=== PATIENT | male | born 1980 | race Caucasian/White ===

== ENCOUNTER 2018-10-29 14:54 | Emergency (ER) | payer SELFPAY ==
[2018-10-29 14:56] VITALS: BP 151/89; PULSE 111; RESP 16; TEMP 36.7; O2SAT 99; BMI 25.0
--- NOTE | 2018-10-29 15:22 | ED.RN ---
pt reports to this rn that he does not want to follow workers comp, despite the injury occurring at work. dr. ac informed.
--- NOTE | 2018-10-29 15:29 | ED.VISSUMM ---
- ER Visit Summary Date of Service: 10/29/18 Chief Complaint: Left thumb laceration History of Present Illness: The patient is a 38 M who was cutting potatoes at work when he incised his left thumb with a knife. Last tetanus was approximately 2000 when he joined the [employer]. Physical Examination: Afebrile vital signs are stable There is a 2 cm flap laceration over the distal aspect of the left thumb. The tissue was still attached and the tissue is still pink. Neurovascular intact. No nail injury. Emergency Department Course and Treatment: Wound was locally anesthetized using 1% lidocaine. Wound was washed with Shur-Clens irrigated and explored. A total of #4 simple interrupted 4-0 Ethilon sutures were placed. Wound was dressed. Tetanus is updated. Patient was advised that the skin may not survive due to blood supply issues. But that it would regenerate. He will follow-up in right 7 to 10 days for suture removal. He states he sees Dr. Villanueva for primary care. Impression: 1. 2 cm left thumb laceration with repair 2. Tetanus update This note was generated with [employer] dictation software. It may contain incorrect words, spelling, and punctuation that were not noted in review of the chart prior to signing ED Disposition - Plan for ED Patient: Disposition: Home or Assisted Living Instructions: ED Laceration Hand Referrals: Jaya Villanueva MD [Primary Care Provider] - (in 7-10 days for suture removal)
--- NOTE | 2018-10-29 15:32 | ED.DCSUM_ITS ---
- ER Visit Summary Date of Service: 10/29/18 Chief Complaint: Left thumb laceration History of Present Illness: The patient is a 38 M who was cutting potatoes at work when he incised his left thumb with a knife. Last tetanus was approximately 2000 when he joined the [employer]. Physical Examination: Afebrile vital signs are stable There is a 2 cm flap laceration over the distal aspect of the left thumb. The tissue was still attached and the tissue is still pink. Neurovascular intact. No nail injury. Emergency Department Course and Treatment: Wound was locally anesthetized using 1% lidocaine. Wound was washed with Shur-Clens irrigated and explored. A total of #4 simple interrupted 4-0 Ethilon sutures were placed. Wound was dressed. Tetanus is updated. Patient was advised that the skin may not survive due to blood supply issues. But that it would regenerate. He will follow-up in right 7 to 10 days for suture removal. He states he sees Dr. Villanueva for primary care. Impression: 1. 2 cm left thumb laceration with repair 2. Tetanus update This note was generated with [employer] dictation software. It may contain incorrect words, spelling, and punctuation that were not noted in review of the chart prio r to signing ED Disposition - Plan for ED Patient: Disposition: Home or Assisted Living Instructions: ED Laceration Hand Referrals: Jaya Villanueva MD [Primary Care Provider] - (in 7-10 days for suture removal)
[2018-10-29] MEDS: Diphth,Pertuss(Acell),Tet Vac 0.5 ML Vial IM (15:35)
== END 2018-10-29 16:03 | disposition home or self-care (01) ==
PROVIDERS: Emergency Provider Emergency Medicine; Family Provider Family Medicine; PCP Family Medicine
DX: S61.012A Laceration without foreign body of left thumb without damage to nail, initial encounter (principal); W26.0XXA Contact with knife, initial encounter; Y93.89 Activity, other specified; Y92.89 Other specified places as the place of occurrence of the external cause; Y99.0 Civilian activity done for income or pay; Z23 Encounter for immunization
CPT/HCPCS: 12001; 90471; 90715; 99284

== ENCOUNTER → 2018-11-13 10:46 | Outpatient (CLI) | payer SELFPAY ==
[2018-10-29 14:56] VITALS: BMI 25.0
--- NOTE | 2018-11-13 10:50 | RAD_ITS ---
STUDY: X-RAY CHEST REASON FOR EXAM: Male, 38 years old. Cough TECHNIQUE: PA and lateral views of the chest. COMPARISON: None. FINDINGS: Subtle infiltrate in the right middle lobe. Otherwise, lungs are clear There is no demonstrated pleural abnormality. Normal size heart. Normal mediastinum and paz. Normal visualized pulmonary arteries. Normal visualized aortic arch and descending thoracic aorta. Normal visualized thoracic spine. Normal visualized ribs, clavicles, and shoulders. There is no demonstrated abnormality of the visualized soft tissue structures of the upper abdomen. RAD/Chest PA and Lateral IMPRESSION: Subtle right middle lobe pneumonia Electronically Signed: Jose Berrios DO at 8:38 EDT Tel , Service support ,
[2018-11-13 14:26] LABS: Absolute Lymphocyte Count 1.72 X10^3/ul (0.83-4.51); Absolute Neutrophil Count 7.2 X10^3/uL (2.0-7.7); Basophil# 0.01 X10^3/uL; Basophil% 0.1 % (0-1); Eosinophil# 0.47 X10^3/uL; Eosinophils% 4.6 % (0-5); Hematocrit 43.6 % (40-54); Hemoglobin 14.7 g/dl (13.0-16.5); Lymphocyte # 1.72 X10^3/ul (4.0); Lymphocyte % 16.8 % (19-41); Mean Corp Hgb Conc 33.7 g/gl (32-36); Mean Corpuscular Hgb 28.3 pg (27.0-32.0); Mean Corpuscular Volume 83.8 fL (80-94); Mean Platelet Vol. 11.2 fl (6.2-12.0); Monocyte# 0.85 X10^3/uL; Monocyte% 8.3 % (0-10); Neutrophil # 7.15 X10^3/uL (2.7-7.7); Neutrophil % 70.1 % (47-70); Platelet Count 291 K/mm3 (150-450); RBC Distribution Width CV 12.9 % (11.6-14.6); RBC Distribution Width SD 39.7 fl (35.1-43.9); White Blood Count 10.2 K/mm3 (4.4-11.0)
[2018-11-13 14:36] LABS: POSITIVE COUNT NO; POSITIVE DIFFERENTIAL NO; POSITIVE MORPHOLOGY NO
[2018-11-17 17:28] LABS: ANTINUCLEAR ANTIBODIES DIRECT Negative (Negative)
== END ==
PROVIDERS: Family Provider Family Medicine; PCP Family Medicine; Referring Provider Family Medicine; Visit Provider Family Medicine
DX: J18.9 Pneumonia, unspecified organism (principal)
CPT/HCPCS: 36415; 71046; 85025; 86038; 86140

== ENCOUNTER → 2019-07-15 14:40 | Outpatient (CLI) | payer BC, SELFPAY ==
--- NOTE | 2019-07-15 14:47 | RAD_ITS ---
HISTORY: right shoulder pain, some numbness lately in arm COMPARISON: None FINDINGS: # of images incl. paperwork: 5 XR Spine Cervical 4 or 5 Views: 5 views of the cervical spine were obtained. All 7 cervical vertebral bodies are identified. No acute cervical spine fracture or subluxation. Normal cervical spine alignment. Odontoid is intact. No significant degenerative change. RAD/Cerv Spine 4 or 5 Views IMPRESSION: No acute cervical spine fracture or subluxation. at 2354 Reported and signed by: Fox Moore MD Electronically Signed: Fox Moore MD at 23:53 EST Tel , Service support ,
== END ==
PROVIDERS: PCP Family Medicine; Referring Provider Family Medicine; Visit Provider Family Medicine
DX: M54.12 Radiculopathy, cervical region (principal)
CPT/HCPCS: 72050

== ENCOUNTER → 2019-07-30 16:53 | Outpatient (CLI) | payer BC, SELFPAY ==
--- NOTE | 2019-07-30 17:14 | MRI_ITS ---
STUDY: MRI CERVICAL SPINE WITHOUT CONTRAST REASON FOR EXAM: Male, 38 years old. right upper extremity weakness TECHNIQUE: Standardized fat and water weighted pulse sequences were obtained in the sagittal and axial planes. COMPARISON: None FINDINGS: Normal foramen magnum and brainstem-cervical cord junction. Normal craniovertebral junction. Normal anterior atlantoaxial articulation. Normal odontoid process. There is reversal of the normal cervical lordosis. Normal vertebral bodies and posterior osseous elements. C2-3: Minor disc desiccation, otherwise normal. C3-4: Diffuse disc desiccation otherwise normal C4-5: Normal endplates. Disc desiccation and mild posterior disc space narrowing is present without bulging or herniation. Normal central canal and intervertebral neural foramina. C5-6: Normal endplates. A moderate size right paracentral disc region measuring 8 mm in diameter is present resulting in compression on the right anterior aspect of the cord and of the exiting nerve root in the opening of the neural foramen. The disc spaces mildly narrowed. Normal central canal and intervertebral neural foramina. C6-7: Normal endplates. Minimal posterior disc space narrowing without bulging or herniation disc desiccation. Normal central canal and intervertebral neural foramina. C7-T1: Normal endplates. Normal disc height, signal and morphology. Normal central canal and intervertebral neural foramina. Normal cervical cord. Normal visualized soft tissue structures. MRI/Spine Cervical (Routine) IMPRESSION: 1. C5-C6 right paracentral extruded disc material resulting in compression on the right anterior aspect of the cord and compression of the exiting nerve root proximal to the neural foramen. 2. Additional mild multilevel degenerative changes as above. Electronically Signed: Jose Cheung MD at 13:20 EST , Service support ,
== END ==
PROVIDERS: PCP Family Medicine; Referring Provider Family Medicine; Visit Provider Family Medicine
DX: M54.12 Radiculopathy, cervical region (principal)
CPT/HCPCS: 72141

== ENCOUNTER 2019-09-07 10:30 | Outpatient (RCR) | payer BC, SELFPAY ==
--- NOTE | 2019-08-05 12:21 | HP.PTEVAL ---
Patient's Visit Information RANDAL PEDRO Jr. is a 38 year old M referred to Physical Therapy by Jaya Villanueva MD with a diagnosis of CERVICAL RADICULOPATHY. Date of Evaluation: 08/05/19 Physical Therapist: Lianna Sanchez PT, Cert MDT - Visit Plan Frequency: 2-3x /Week Duration: 4-6 Weeks Plan: POSTURE CORRECTION/STRENGTHENING, INSTRUCTION IN APPROPRIATE BODY MECHANICS AND ACTIVITY MODIFICATIONS. CONSIDER TRACTION. RIGHT UE ROM, STRETCHING AND STRENGTHENING. CERVICAL STABILIZATION, HEP INSTRUCTION INCLUDING THE FOLLOWING APPROPRIATE: REP RET IN SITTING. REP RET IN LYING. SCAP SQUEEZES. DEEP NECK FLEXOR LIFT. PRONE W'S. UE WALL SLIDES. PRONE ROWS. UE TBAND WALL WALKS. ANTERIOR/MIDDLE SCALENE STRETCH. UPPER TRAP STRETCH. LEVATOR SCAPULAE STRETCH. CHEST/PEC MAJOR AND MINOR STRETCH - Subjective Findings: Diagnosis: CERVICAL RADICULOPATHY. 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 AT [employer] ABOUT 60 HOURS A WEEK. Disability: NO. Present symptoms: PAIN, NUMBNESS AND TINGLING FROM SHOULDER TO THUMB - THROUGH WHOLE ARM. NECK PAIN HAS REDUCED SINCE BEING ON MALOXACAM AND GABAPENTIN. WEAKNESS. Present since: ABOUT 4 WEEKS AGO. Pain Scale: Worst - 8/10 Least - 2/10. Currently: 09/07. Commenced as a result of: NO APPARENT REASON. WOKE UP ONE MORNING RESTING HEAD ON PILLOW WITH RIGHT UE OUTSTRETCHED UNDER PILLOW. Symptoms at onset: STIFF NECK. Worse: HANGING ARM DOWN, NOT TAKING GABAPENTIN AND SLEEPING PILL, USING THE ARM IN GENERAL. NO STRENGTH IN RIGHT UE - CAN'T CARRY A GALLON OF MILK. RIGHT HAND DOMINANT. DRIVING IS THE WORST. Better: PUTTING RIGHT ARM UP OVER HEAD. Disturbed sleep: YES. Previous history/Previous treatment: UNREMARKABLE. This episode: 2 CHIROPRACTIC VISITS: FIRST TREATMENT HELPED RELIEVE SOME PAIN BUT AFTER SECOND VISIT STARTED GETTING MORE PAIN IN THE SHOULDER AND DOWN THE ARM. SLEEPING, GABAPENTIN, MALOXACAM, B6. PT REFERRAL. PAIN MGMT REFERRAL TO DR. GRAF. APPT WITH DR. DELGADILLO AUG 12 2019 - TO GET ADJUSTED AND ALIGNED. HAS ALSO BEEN REFERRED TO A NEUROLOGIST AND IS AWAITING ARJUN'T DATE. ALSO TRIED PREDNISONE THIS EPISODE OF CARE AND IT DIDN'T WORK. Dizziness: NO. Tinnitis: NO. Nausea: NO. Shortness of Breath: NO. Difficulty Swollowing: NO. Gait: NORMAL BUT HURTS NECK SOMETIMES. Accidents: NO. Unexplained weight loss: NO. Imaging: MRI - STUDY: MRI CERVICAL SPINE WITHOUT CONTRAST. REASON FOR EXAM: Male, 38 years old. right upper extremity weakness. TECHNIQUE: Standardized fat and water weighted pulse sequences were. obtained in the sagittal and axial planes. COMPARISON: None. . FINDINGS: Normal foramen magnum and brainstem-cervical cord junction. Normal. craniovertebral junction. Normal anterior atlantoaxial articulation. Normal odontoid process. There is reversal of the normal cervical lordosis. Normal vertebral bodies. and posterior osseous elements. C2-3: Minor disc desiccation, otherwise normal. C3-4: Diffuse disc desiccation otherwise normal. C4-5: Normal endplates. Disc desiccation and mild posterior disc space. narrowing is present without bulging or herniation. Normal central canal. and intervertebral neural foramina. C5-6: Normal endplates. A moderate size right paracentral disc region. measuring 8 mm in diameter is present resulting in compression on the right. anterior aspect of the cord and of the exiting nerve root in the opening of. the neural foramen. The disc spaces mildly narrowed. Normal central canal. and intervertebral neural foramina. C6-7: Normal endplates. Minimal posterior disc space narrowing without. bulging or herniation disc desiccation. Normal central canal and. intervertebral neural foramina. C7-T1: Normal endplates. Normal disc height, signal and morphology. Normal central canal and intervertebral neural foramina. Normal cervical cord. Normal visualized soft tissue structures. . MRI/Spine Cervical (Routine). IMPRESSION: 1. C5-C6 right paracentral extruded disc material resulting in compression. on the right anterior aspect of the cord and compression of the exiting. nerve root proximal to the neural foramen. 2. Additional mild multilevel degenerative changes as above. PMH/Recent major surgery: CHRONIC LOW BACK PAIN - MAINLY SELF TREATED. - Objective Sitting Posture/Standing Posture: POOR. FORWARD HEAD AND ROUNDED SHOULDERS. NO TORTICOLLIS. Active Correction of posture: NE. Other Observations: INDEP GAIT AND TRANSFERS. Motor deficit: RIGHT UE GROSSLY 4-/5 COMPARED TO 5/5 LEFT UE EXCEPT RIGHT SHLD HORIZONTAL ABD AT 90 DEG 3-/5. RIGHT HOME CARE COORDINATOR STRENGTH 55 LBS AND LEFT 100 LBS. Sensory deficit: DECREASED LIGHT TOUCH SENSATION THROUGHOUT RIGHT UE COMPARED TO LEFT. ROM deficit: JEANCARLOS UE ROM WFL EXCEPT APPROX 30% LIMITED RIGHT SHOULDER HORIZONAL ABD AT 90 DEG COMPARED TO LEFT. Reflexes: UNABLE TO ELICIT RIGHT UE DTR'S. LEFT UE - 1/2. Dural Signs: POSITIVE RIGHT UE. Cervical Mvmt Loss: Flex: MIN. Pro: NIL. Ext: MOD. Ret: LAMBERTO. RSB: MIN. LSB: MOD. R Rot: MIN. L Rot: MOD. PATIENT WITH INCREASED C/O NECK AND RIGHT UE SX'S WITH EXTENSION AND RETRACTION TESTING. Postural strength: POOR. Palpation: NO ACUTE THORACIC, CERVICAL OR JEANCARLOS SHOULDER TENDERNESS. OTHER: SEATED CERVICAL DISTRACTION TEST: NO EFFECT. TREATMENT: NEUROMUSCULAR REEDUCATION - RETRAINING OF MVMT AND POSTURE FOR SITTING, LYING AND STANDING ACTIVITIES. - Goals Goal 1:: DECREASE C/O NECK AND RIGHT UE SX'S. Goal Time Frame: 4-6 Weeks Goal 2:: IMPROVE DRIVING, LIFTING, WORK AND RECREATIONAL FUNCTION Goal Time Frame: 4-6 Weeks Goal 3:: INSTRUCT IN PROPHYLAXIS Goal Time Frame: 4-6 Weeks - Rehabilitation Potential Rehabilitation Potential: Fair - Anticipated Interventions Patient/Client Instruction: Educate patient on: Condition, Plan of Care, Risk Factors, Benefits of Fitness Program For the Purpose of:: To improve self management Therapeutic Exercise to Include: Strength training, Body mechanics, Postural training, Flexibilty training, Active ROM, Scapular Strength/Stabilization For the Purpose of:: To decrease pain, To increase ROM, To improve muscle performance and motor function, To increase tolerance to activity/condition/position, To improve ability of physical actions for home/community/work/leisure Cryotherapy (ice pack, ice massage): Yes Thermo therapy (hot pack): Yes Ultrasound (thermal/non thermal): Yes Intermittent cervical traction: Yes - TRY MANUAL FIRST. For the Purpose of:: To decrease pain, To decrease swelling/inflammation, To improve nutrient delivery to tissue Thank you for the opportunity to evaluate your patient. For Medicare and Medicare HMO plans, please review the plan of care and approve it. It will need to be FAXED BACK to us at [phone] for Medicare purposes. For Medicare only, by signing this I certify the plan of care. Please let me know if there are questions or concerns regarding this plan of care. Physician Signature: Date:
--- NOTE | 2019-09-07 11:08 | HP.PTDCSUM_ITS ---
HP - PT D/C Summary It has been my pleasure to treat RANDAL PEDRO Jr. referred by Jaya Villanueva MD, with the diagnosis of CERVICAL RADICULOPATHY for a total of 6 visit(s). Discharge Date: 09/07/19 Please see the following information for a summary of their discharge status. - Subjective Subjective: SAW DR. OAKES LAST WEEK - HAVING INJECTION TOMORROW. PATIENT REPORTS SORENESS AFTER STARTING NEW EX'S LAST VISIT BUT STATES HE WASN'T IN PAIN. NO LONGER SORE OR IN PAIN BUT STATES HIS RIGHT NECK/SHOULDER IS AGGREV ATED FROM WORKING A LOT YESTERDAY. THE NUMBING IS REALLY WHAT IS AGGREVATED SINCE WORK YESTERDAY. - Pain NECK Pain Intensity (Out of 10): 0 RIGHT SHLD Pain Intensity (Out of 10): 0 LEFT SHLE Pain Intensity (Out of 10): 0 - Overall Improvement % Improvement: 90 - Objective Objective/Function: PATIENT WAS SEEN TODAY FOR RE-ASSESSMENT OF PROGRESS TOWARD THE SET PT GOALS AND THE NEED FOR FURTHER PHYSICAL THERAPY VS READINESS FOR DISCHARGE. PATIENT HAS RESPONDED GREAT TO PT. UPON EXAM TODAY: ALL GOALS HAVE BEEN MET HOWEVER HE STILL HAS RIGHT UE NUMBNESS. HE IS INDEP WITH A HEP AND APPROPRIATE TO BE DISCHARGE TO INDEP HEP AND FOLLOW UP WITH PAIN MGMT NEEDED. PATIENT IS AGREEABLE. PATIENT HAS BEEN INSTRUCTED IN AND COMMUNICATES A GOOD UNDERSTANDING OF APPROPRIATE HEP PROGRESSION. - Goals Goal 1:: DECREASE C/O NECK AND RIGHT UE SX'S. Goal Progress: Goal Met Goal 2:: IMPROVE DRIVING, LIFTING, WORK AND RECREATIONAL FUNCTION Goal Progress: Goal Met Goal 3:: INSTRUCT IN PROPHYLAXIS Goal Progress: Goal Met - Plan Plan: D/C TO HEP - D/C Information If there are questions or concerns regarding this patient's physical therapy, please feel free to call me at [phone]. Thank you for the referral of this patient. Sincerely, Lianna Sanchez, PT, Cert MDT
== END 2019-09-07 19:00 | disposition home or self-care (01) ==
LOC: PT 10:30
PROVIDERS: PCP Family Medicine; Referring Provider Family Medicine; Visit Provider Family Medicine
DX: M54.12 Radiculopathy, cervical region (principal)
CPT/HCPCS: 97035; 97110; 97112; 97140; 97162; 97164; 97530

== ENCOUNTER → 2020-04-27 16:26 | Outpatient (CLI) | payer BC, SELFPAY | PROVIDERS: PCP Family Medicine; Referring Provider Family Medicine; Visit Provider Family Medicine | DX: Z20.828 Contact with and (suspected) exposure to other viral communicable diseases (principal) | CPT/HCPCS: 87635; U0003 ==

== ENCOUNTER 2021-03-18 19:20 | Emergency (ER) | payer BC, SELFPAY ==
[2021-03-18 19:21] VITALS: BP 127/81; PULSE 67; RESP 14; TEMP 36.5; O2SAT 98; BMI 22.5
--- NOTE | 2021-03-18 19:34 | ED.VIS.LOWEX ---
HPI History of Present Illness Chief Complaint: Lower Extremity Injury Informant: patient Narrative Narrative: 40-year-old male states that several days ago he sustained an inversion injury to the left foot on some uneven concrete. He has been able to walk on it sometimes needed a crutch. He notes a large amount of bruising and discomfort with ambulation PFSH PFSH no medical history Home Medications hydrocodone-acetaminophen 1 tab PO Q6H PRN PRN 3 Days #12 tablet 03/18/21 [Rx Last Taken Unknown] Allergy/AdvReac Type Severity Reaction Status Date / Time No Known Allergies Allergy Verified 03/18/21 19:21 no surgical history Social History (Updated 03/18/21 @ 19:[address] Yayo Dubon, DO) Smoking Status: Never smoker substance use type: marijuana ROS ROS ED Constitutional Constitutional ED: Denies chills or weight loss Eyes Eyes: Denies change in vision or diplopia ENT ENT ED: Denies ear pain, rhinorrhea or sore throat Cardiovascular Cardiovascular: Denies chest pain, orthopnea, palpitations or racing heartbeat Respiratory/Chest Respiratory/Chest: Denies cough, dyspnea or orthopnea Gastrointestinal Gastrointestinal: Denies abdominal pain, diarrhea, nausea or vomiting Genitourinary Genitourinary ED: Denies dysuria, hematuria or urinary frequency Musculoskeletal Musculoskeletal: Reports other Details: See HPI ; Denies arthralgias or myalgias Integumentary Denies abscess or rash Neurologic Neurologic: Denies headache(s) or weakness Psychiatric Psychiatric: Denies anxiety, depression, suicidal ideation or suicidal thoughts Endocrine Endocrinology: Denies polydipsia, polyphagia or polyuria Allergic/Immunologic Allergic/Immunologic ED: Denies mouth swelling, tongue swelling or urticaria EXAM Physical Exam Const Vital Signs: 03/18/21 19:21 Temperature 97.7 F L Temperature Source Temporal Pulse Rate 67 Respiratory Rate 14 Blood Pressure 127/81 H Blood Pressure Mean 96 Pulse Ox 98 Oxygen Delivery Method Room Air Positive well nourished and well developed General Appearance ED: well developed HEENT Reports normocephalic, head/scalp atraumatic and moist mucous membranes Eyes PERRL and EOMs intact bilaterally Neck no lymphadenopathy, supple and no JVD Resp normal respiratory effort and clear to auscultation bilaterally Cardio regular rate, regular rhythm and no murmurs GI normal to inspection, nondistended, normoactive bowel sounds and non-tender Palpation: soft Back/Spine no CVA tenderness and normal ROM Extremity Extremity Narrative: There is a large amount of purplish ecchymosis and some mild swelling over the dorsum of the left foot. This extends from fifth metatarsal to the first metatarsal. The ankle appears uninjured. No fibular head tenderness. General Extremety ED: Negative for edema General Extremity: Negative for edema Neuro oriented x3 and CN's II-XII intact bilaterally Sensorium / Orientation: alert Motor Exam: strength 5/5 throughout Psych mental status grossly normal Mood & Affect: Negative for depressed or tearful Skin no rashes or lesions noted and no wounds MDM MDM MDM Narrative Medical decision making narrative: My interpretation of the plain films of the left foot is a pseudo-Lagun[place] fracture of the fifth metatarsal. Discharge Plan Triage Chief Complaint: Lower Extremity Injury ED Provider: Yayo Dubon Dx/Rx/DC Orders Clinical Impression: Closed fracture of fifth metatarsal bone Instructions: ED Fracture, Foot Prescriptions: New hydrocodone-acetaminophen [hydrocodone-acetaminophen] 1 TABLET tablet 1 tab PO Q6H PRN PRN (Reason: Pain) 3 Days Qty: 12 RF: 0 Primary Care Provider: Jaya Villanueva Referrals: Jaya Villanueva MD [Primary Care Provider] - Matt Mchugh DPM [STAFF PHYSICIAN] - As soon as possible Disposition Disposition: Home, Self Care
--- NOTE | 2021-03-18 19:35 | RAD_ITS ---
STUDY: X-RAY - LEFT FOOT CLINICAL: Male, 40 years old. INJURY lateral foot pain bruising TECHNIQUE: 3 view(s) of the foot. COMPARISON: None. FINDINGS: There is acute nondisplaced fracture at the base of the fifth metatarsal. Remainder of the bones are intact and all joints are located. RAD/Foot min 3 Views IMPRESSION: Base of fifth metatarsal acute nondisplaced fracture. Electronically Signed: Nikki Demarco MD at 20:38 EDT Tel , Service support ,
== END 2021-03-18 21:31 | disposition home or self-care (01) ==
PROVIDERS: Emergency Provider Emergency Medicine; PCP Family Medicine
DX: S92.355A Nondisplaced fracture of fifth metatarsal bone, left foot, initial encounter for closed fracture (principal); X50.1XXA Overexertion from prolonged static or awkward postures, initial encounter; Y93.9 Activity, unspecified; Y92.480 Sidewalk as the place of occurrence of the external cause; Y99.9 Unspecified external cause status
CPT/HCPCS: 73630; 99282

== ENCOUNTER → 2023-07-26 | Outpatient (CLI) | payer OTHER, SELFPAY ==
[2023-07-26 16:56] LABS: Absolute Lymphocyte Count 2.23 X10^3/uL (0.83-4.51); Absolute Neutrophil Count 4.2 X10^3/uL (2.0-7.7); Basophil# 0.07 X10^3/uL; Basophil% 0.9 % (0-1); Eosinophil# 0.51 X10^3/uL; Eosinophils% 6.3 % (0-5); Hematocrit 45.7 % (40-54); Hemoglobin 15.3 g/dL (13.0-16.5); Lymphocyte # 2.23 X10^3/ul (0.83-4.51); Lymphocyte % 27.6 % (19-41); Mean Corp Hgb Conc 33.5 g/dL (32-36); Mean Corpuscular Hgb 29.1 pg (27.0-32.0); Mean Corpuscular Volume 86.9 fL (80-94); Mean Platelet Vol. 10.4 fl (6.2-12.0); Monocyte# 1.05 X10^3/uL; NRBC Flagged by Analyzer 0 % (0-5); Neutrophil # 4.18 X10^3/uL (2.7-7.7); Neutrophil % 51.8 % (47-70); Platelet Count 321 K/mm3 (150-450); RBC Distribution Width CV 13.1 % (11.6-14.6); RBC Distribution Width SD 41.3 fl (35.1-43.9); Red Blood Count 5.26 M/mm3 (4.6-6.2); White Blood Count 8.1 K/mm3 (4.4-11.0)
[2023-07-26 17:38] LABS: Prothrombin Time (Protime)PT. 13.7 SECONDS (11.7-14.9)
[2023-07-26 18:08] LABS: Vitamin B12 670 pg/mL (211-911)
[2023-07-26 18:32] LABS: AST(SGOT) 18 U/L (15-37); Alanine Aminotransfer ALT/SGPT 27 U/L (16-61); Albumin, Serum 3.7 g/dL (3.2-5.0); Alkaline Phosphatase 78 U/L (45-117); Anion Gap 2 (5-15); BUN 15 mg/dL (7-18); BUN/Creat Ratio 14.3 RATIO (10-20); Calcium,Total 9.2 mg/dL (8.5-10.1); Chloride 108 mmol/L (98-107); Cholesterol 146 mg/dL (200); Creatinine, Serum 1.05 mg/dL (0.70-1.30); EST Glomerular Filtration Rate 81 mL/min (>60); Est Glom Filt Rate - Afr Amer 98 mL/min (>60); GGTP 19 U/L (15-85); Globulin 3.6 g/dL (2.2-4.2); Glucose 72 mg/dL (74-106); High Density Lipoprotein 72 mg/dL; Lipase 66 U/L (13-75); Potassium 4.2 mmol/L (3.5-5.1); Protein, Total 7.3 g/dL (6.4-8.2); Sodium Level 139 mmol/L (136-145)
== END | disposition home or self-care (01) ==
LOC: LAB 16:15
PROVIDERS: PCP Family Medicine; Referring Provider Family Medicine; Visit Provider Family Medicine
DX: F10.90 Alcohol use, unspecified, uncomplicated (principal)
CPT/HCPCS: 36415; 80053; 82465; 82607; 82746; 82977; 83690; 83718; 85025; 85610

== ENCOUNTER 2023-10-11 08:49 | Day surgery (SDC) | payer OTHER, SELFPAY ==
[2023-10-11 09:09] VITALS: BP 158/93; PULSE 73; RESP 16; TEMP 36.4; O2SAT 100; BMI 23.2
[2023-10-11] MEDS: Lactated Ringers 1,000 ML 15 ML IV (09:13)
--- NOTE | 2023-10-11 09:24 | PCM.HP.BLA ---
History and Physical Date of Admission: 10/11/23 Intake Vital Signs 03/18/2119:21 08/21/2407:16 Height 6 ft 4 in 6 ft 4 in Weight: 202 lb BMI 24.5 BP 133/86 H Blood Pressure Location Rt brachial Position Sitting Respiration 17 Pulse 104 H Pulse Source Monitor Pulse Oximetry (%) 100 Oxygen Delivery Method room air Intake Visit Reasons: HEMORRHOIDS Chief Complaint: hemorrhoids/colonoscopy Is patient in pain?: No Allergies No Known Allergies Allergy (Verified 08/21/23 08:17) Medications albuterol sulfate 90 mcg/actuation aerosol inhaler 2 puff inhalation Q6H PRN 08/21/23 [History Confirmed 08/21/23] PFSH Surgical History (Updated 08/21/23 @ 08:15 by Rossy Merlos) Hx of tonsillectomy Family History (Updated 08/21/23 @ 08:16 by Rossy Merlos) Mother Breast cancerFather Heart disease Social History (Updated 08/21/23 @ 08:16 by Rossy Merlos) Smoking Status: Never smoker Smokeless tobacco user: chewing tobacco substance use type: marijuana and other details: cbd oil HPI HPI HPI: Patient is a 43-year-old male who is having blood in his stool. He says this happens 1-2 times per week. He says it is painless. He does not have any pain having bowel movements. He says he has 7 bowel movements a day and they are formed and there is no constipation. Family has no history of colon cancer. Patient denies any abdominal pain. He says the blood is bright red. He is also concerned that he has hemorrhoids that are causing the bleeding. ROS General General: No weight change, appetite, fatigue, colon cancer, breast cancer or weakness HEENT HEENT: Yes difficulty swallowing; No eye injury, eye surgery, swollen glands or hoarseness Endo Endocrine: No thyroid disease, diabetes mellitus, thyroid cancer, Hair loss, heat intolerance or cold intolerance Skin Skin: No rash or changing moles Musc Musculoskeletal: Yes back problems; No arthritis, rheumatoid arthritis, gout or joint pain Cardio Cardiovascular: No murmur, pacemaker, heart disease, atrial fibrillation, high blood pressure, heart attack, heart stent, palpitations, shortness of breat with exertion or chest pain Psych Psychiatric: Yes depression; No anxiety or hearing voices Resp Respiratory: No shortness of breath, No sleep apnea, No cough, No COPD, No asthma, No emphysema and No wheezing Gastro Gastrointestinal: No abdominal pain, No nausea or vomiting, No diarrhea, Yes constipation, No blood in stool, No acid reflux, Yes hemorrhoids, No ulcers, No gallbladder problem and No black,tarry stools [place] Hematologic: No blood thinners, No blood disorders, No bleeding, No anemia and No blood clots Neuro Neurologic: No system reviewed and no additional complaints, except as documented, No as per HPI, No abnormal gait, No abnormal hearing, No abnormal movements, No abnormal speech, No behavioral changes, No burning sensations, No confusion, No convulsions, No disequilibrium, No dizziness, No localized weakness, No frequent falls, No headache(s), No lack of coordination, No loss of vision, No memory loss, No numbness, No other visual disturbances, No radicular pain, No restless legs, No sensory deficit, No syncope, No tingling, No tremor(s), No weakness and No other Exam Const General: cooperative Orientation: alert and oriented x3 [facility] Head: normal to inspection Neck Neck: normal visual inspection and full ROM Chest Chest palpation & inspection: normal inspection of the chest Resp Effort & Inspection: normal respiratory effort Auscultation: clear to auscultation bilaterally Cardio Rate: regular rate Rhythm: regular rhythm GI Inspection: non-distended Palpation: soft and nontender Skin General: no rashes or lesions noted Neuro General: patient alert and patient oriented x3 Extrem General: full ROM Psych Appearance: grossly normal Mental Status: mental status grossly normal Assessment and Plan Assessment and Plan (1) Blood in stool: Status: Acute Plan: Patient has blood in the stool and requires colonoscopy for evaluation. Patient also believes he has hemorrhoids and I will evaluate for this during colonoscopy. I explained endoscopy in detail to the patient. I explained the risks including but not limited to stroke or heart attack with anesthesia, perforation of the GI tract, bleeding, infection. I explained that any of these could necessitate further emergency surgery. The patient understands and all questions were answered sufficiently. The patient wishes to proceed with procedure. Mal Jones MD Pager: [facility] [address] [place] [address], [address] [place] [address] Office: I have examined the patient and the H&P has been reviewed. There are no clinical changes since date of exam.
[2023-10-11 09:54] VITALS: BP 158/93; BP 89/60; PULSE 82; RESP 14; TEMP 36.3; O2SAT 97
[2023-10-11 10:00] VITALS: BP 158/93; BP 96/60; PULSE 84; RESP 15; O2SAT 100
--- NOTE | 2023-10-11 10:03 | OP.CCLET_ITS ---
10/11/2023 Jaya Villanueva [address] [facility] [address] [place] [address] Re : Colonoscopy procedure for Papa Shereenritesh Dear Dr. Villanueva This procedure was performed on Wednesday, October 11, 2023. My impressions and recommendations are as follows: Impressions : - The entire examined colon is normal on direct and retroflexion views. - Internal hemorrhoids. - No specimens collected. Recommendations : - Discharge patient to home. - Resume previous diet. - Continue present medications. - Repeat colonoscopy in 10 years for screening purposes. My findings are described in the full procedure note, which is enclosed. If I can be of further assistance, please feel free to contact me at Doctor phone number(s): , Work: . Sincerely, Mal Jones MD 10/11/2023 10:02:22 AM This report has been signed electronically.
--- NOTE | 2023-10-11 10:03 | OP.COLON_ITS ---
Patient Name: Papa Bergeron Procedure Date: 10/11/2023 9:29 AM Date of : 1980 Age: 43 Procedure: Colonoscopy Indications: Anal bleeding Providers: Mal Jones MD Medicines: Propofol per Anesthesia Patient Profile: This is a 43 year old male. Refer to note in patient chart for documentation of history and physical. Last Colonoscopy: none. The patient's first colonoscopy is today. Complications: No immediate complications. Estimated blood loss: Minimal. Procedure: Pre-Anesthesia Assessment: - Prior to the procedure, a History and Physical was performed, and patient medications and allergies were reviewed. The patient's tolerance of previous anesthesia was also reviewed. The risks and benefits of the procedure and the sedation options and risks were discussed with the patient. All questions were answered, and informed consent was obtained. Prior Anticoagulants: The patient has taken no anticoagulant or antiplatelet agents. After reviewing the risks and benefits, the patient was deemed in satisfactory condition to undergo the procedure. After I obtained informed consent, the scope was passed under direct vision. Throughout the procedure, the patient's blood pressure, pulse, and oxygen saturations were monitored continuously. The colonoscope was introduced through the anus and advanced to the cecum, identified by appendiceal orifice and ileocecal valve. The colonoscopy was performed without difficulty. The patient tolerated the procedure well. The quality of the bowel preparation was good. Anatomical landmarks were photographed. Scope In: 9:37:11 AM Scope Withdrawal Time 0 hours 8 minutes 42 seconds Scope Out: 9:50:58 AM Total Procedure Duration Time 0 hours 13 minutes 47 seconds Findings: The entire examined colon appeared normal on direct and retroflexion views. Internal hemorrhoids were found during retroflexion. Impression: - The entire examined colon is normal on direct and retroflexion views. - Internal hemorrhoids. - No specimens collected. Recommendation: - Discharge patient to home. - Resume previous diet. - Continue present medications. - Repeat colonoscopy in 10 years for screening purposes. Procedure Code(s): --- Professional --- 77593, Colonoscopy, flexible; diagnostic, including collection of specimen(s) by brushing or washing, when performed (separate procedure) Diagnosis Code(s): --- Professional --- K64.8, Other hemorrhoids K62.5, Hemorrhage of anus and rectum CPT copyright 2021 [employer]. All rights reserved. The codes documented in this report are preliminary and upon spine surgeon review may be revised to meet current compliance requirements. Mal Jones MD 10/11/2023 10:02:22 AM This report has been signed electronically. Number of Addenda: 0 Note Initiated On: 10/11/2023 9:29 AM
[2023-10-11 10:05] VITALS: BP 115/84; BP 158/93; PULSE 85; RESP 18; O2SAT 100
[2023-10-11 10:11] VITALS: BP 125/85; BP 158/93; PULSE 83; RESP 18; TEMP 36.7; O2SAT 100
[2023-10-11 10:33] VITALS: BP 158/93
== END 2023-10-11 10:39 | disposition home or self-care (01) ==
LOC: EN 08:50 → AC 08:51
PROVIDERS: PCP Family Medicine; Referring Provider Family Medicine; Visit Provider Surgery
PROC: 0DJD8ZZ Inspection of Lower Intestinal Tract, Via Natural or Artificial Opening Endoscopic (ICD-10-PCS; CPT 45378; principal; 2023-10-11 09:40)
DX: K62.5 Hemorrhage of anus and rectum (principal); K64.8 Other hemorrhoids; F12.90 Cannabis use, unspecified, uncomplicated; F17.220 Nicotine dependence, chewing tobacco, uncomplicated
CPT/HCPCS: 45378; J7120; J2405